=== PATIENT | male | born 1935 | race Asian ===

== ENCOUNTER 2023-11-28 09:53 | Observation (INO) | payer OTHER, MEDICARE ==
[2023-11-28 10:37] LABS: URINE APPEARANCE CLEAR; URINE BILIRUBIN NEGATIVE (NEGATIVE); URINE COLOR YELLOW; URINE GLUCOSE (UA) 3+ (NEGATIVE); URINE KETONE NEGATIVE (NEGATIVE); URINE LEUK ESTERASE NEGATIVE (NEGATIVE); URINE NITRITE NEGATIVE (NEGATIVE); URINE PROTEIN NEGATIVE (NEGATIVE); URINE UROBILINOGEN 0.2 mg/dL (0.2-1.0)
[2023-11-28 11:07] LABS: EOS % 7.4 % (0-4.5); HEMATOCRIT 42.8 % (35.4-49); HEMOGLOBIN 14.6 GM/dL (11.7-16.9); LYMPH % 18.9 % (8-40); MCHC 34.1 g/dl (32.0-35.9); MEAN CELL VOLUME 90.8 fl (80-96); MEAN PLT VOLUME 9.5 fl (7.5-11.1); NEUT % 63.7 % (42.8-82.8); PLATELET COUNT 169 10^3/uL (134-434); RBC 4.71 M/mm3 (4.00-5.60); RDW 14.2 % (11.9-15.9); WHITE BLOOD COUNT 7.4 K/mm3 (4.0-10.0)
[2023-11-28 11:19] LABS: ACTIVATED PTT 32.7 SECONDS (25.2-36.5); PROTHROMBIN TIME (PATIENT) 11.3 SEC (9.7-13.0)
[2023-11-28 11:32] LABS: POTASSIUM 5.6 mmol/L (3.5-5.1)
[2023-11-28 11:34] LABS: CALCIUM 9.7 mg/dL (8.5-10.1)
[2023-11-28 11:35] LABS: ALBUMIN 3.8 g/dl (3.4-5.0); BLOOD UREA NITROGEN 33.2 mg/dL (7-18)
[2023-11-28 11:38] LABS: CREATININE 1.9 mg/dL (0.55-1.3); PHOSPHOROUS 4.1 mg/dL (2.5-4.9)
[2023-11-28 11:40] LABS: TOT PROT 7.7 g/dl (6.4-8.2)
[2023-11-28] MEDS: LACTATED RINGERS SOLUTION 1000 ML INFUS.BAG IV ONE (13:16)
[2023-11-28] MEDS: SODIUM CHLORIDE 0.45% 1,000 ML IV SCH (15:22)
[2023-11-28 15:57] LABS: POTASSIUM 4.2 mmol/L (3.5-5.1)
[2023-11-28 15:59] LABS: CALCIUM 9.3 mg/dL (8.5-10.1)
[2023-11-28 16:00] LABS: ALBUMIN 3.5 g/dl (3.4-5.0); BLOOD UREA NITROGEN 33.7 mg/dL (7-18); MAGNESIUM 1.9 mg/dL (1.8-2.4)
[2023-11-28 16:04] LABS: BILIRUBIN,TOTAL 0.7 mg/dL (0.2-1); TOT PROT 7.1 g/dl (6.4-8.2)
[2023-11-28 16:07] LABS: CREATININE 1.9 mg/dL (0.55-1.3); PHOSPHOROUS 3.5 mg/dL (2.5-4.9)
[2023-11-28] MEDS: INSULIN ASPART SLIDING SCALE (NOVOLOG) 1 VIAL SQ SCH (17:54)
[2023-11-28] MEDS ORDERED: INSULIN ASPART SLIDING SCALE (NOVOLOG) 1 VIAL SQ ONE (17:56)
[2023-11-28 21:27] VITALS: BMI 26.4
[2023-11-28] MEDS ORDERED: PATIENT'S OWN MEDICATION (NON-FORMULARY) (Netarsudil Mesylate [Rhopressa] 2.5 ML Drops) OU SCH (22:00)
[2023-11-28] MEDS ORDERED: PATIENT'S OWN MEDICATION (NON-FORMULARY) (Dorzolamide Hcl/Timolol Maleat [Dorzolamide-Timo OU SCH (22:00)
[2023-11-28] MEDS: amLODIPine BESYLATE 2.5 MG TABLET (FP) PO SCH (22:48)
[2023-11-28] MEDS: DORZOLAMIDE 2% HCL OPHTHALMIC SOLUTION 10 ML BOTTLE OU SCH (22:49)
[2023-11-28] MEDS: ATORVASTATIN CA 20 MG TABLET (FP) PO SCH (22:49)
[2023-11-28] MEDS: TAMSULOSIN HCL 0.4 MG CAP PO ONE (22:49)
[2023-11-28] MEDS: BRIMONIDINE TARTRATE 0.15% OPHTHALMIC 5 ML BOTTLE OD SCH (22:49)
[2023-11-28] MEDS: TIMOLOL 0.5% OPHTHALMIC SOL 5 ML BOTTLE OU SCH (22:50)
[2023-11-28] MEDS: TAMSULOSIN HCL 0.4 MG CAP PO SCH (22:51)
[2023-11-29] MEDS ORDERED: TAMSULOSIN HCL 0.4 MG CAP PO SCH ×2 (08:30→22:00)
[2023-11-29 09:14] LABS: HEMATOCRIT 39.6 % (35.4-49); HEMOGLOBIN 13.2 GM/dL (11.7-16.9); MCH 30.7 pg (25.7-33.7); MCHC 33.3 g/dl (32.0-35.9); MEAN CELL VOLUME 92.2 fl (80-96); MEAN PLT VOLUME 9.1 fl (7.5-11.1); PLATELET COUNT 160 10^3/uL (134-434); RBC 4.29 M/mm3 (4.00-5.60); RDW 13.9 % (11.9-15.9); WHITE BLOOD COUNT 8.2 K/mm3 (4.0-10.0)
[2023-11-29 09:42] LABS: POTASSIUM 3.9 mmol/L (3.5-5.1)
[2023-11-29 09:47] LABS: ALBUMIN 3.2 g/dl (3.4-5.0); BLOOD UREA NITROGEN 29.6 mg/dL (7-18)
[2023-11-29 09:51] LABS: CALCIUM 8.8 mg/dL (8.5-10.1)
[2023-11-29 09:54] LABS: CREATININE 1.6 mg/dL (0.55-1.3)
[2023-11-29 09:55] LABS: TOT PROT 6.5 g/dl (6.4-8.2)
[2023-11-29 09:56] LABS: MAGNESIUM 1.8 mg/dL (1.8-2.4)
[2023-11-29 09:57] LABS: PHOSPHOROUS 3.5 mg/dL (2.5-4.9)
[2023-11-29] MEDS ORDERED: FUROSEMIDE 20 MG TABLET (FP) PO SCH (10:00)
[2023-11-29] MEDS: LOSARTAN 50MG/HCTZ 12.5MG 1 TAB PO SCH (18:34)
[2023-11-29] MEDS: METOPROLOL TARTRATE 50 MG TABLET (FP) PO SCH (22:25)
[2023-11-30 09:09] LABS: POTASSIUM 3.8 mmol/L (3.5-5.1)
[2023-11-30 09:11] LABS: CALCIUM 8.4 mg/dL (8.5-10.1)
[2023-11-30 09:14] LABS: BLOOD UREA NITROGEN 26.8 mg/dL (7-18)
[2023-11-30 09:15] LABS: CREATININE 1.6 mg/dL (0.55-1.3)
[2023-11-30 13:07] VITALS: BP 126/69; PULSE 62; RESP 17; TEMP 98.1
[2023-11-30] MEDS: TAMSULOSIN HCL 0.4 MG CAP PO ONE (13:39)
== END 2023-11-30 17:02 | disposition home or self-care (01) ==
LOC: JER 09:53 → JERBED 13:14 → J7W 18:57
PROVIDERS: ADMIT Internal Medicine; ATTEND Internal Medicine
PROC: 0T9B70Z Drainage of Bladder with Drainage Device, Via Natural or Artificial Opening (ICD-10-PCS; principal; 2023-11-28)
PROC: 3E0337Z Introduction of Electrolytic and Water Balance Substance into Peripheral Vein, Percutaneous Approach (ICD-10-PCS; 2023-11-28)
DX: R33.9 Retention of urine, unspecified (principal); N13.30 Unspecified hydronephrosis; E11.22 Type 2 diabetes mellitus with diabetic chronic kidney disease; I12.9 Hypertensive chronic kidney disease with stage 1 through stage 4 chronic kidney disease, or unspecified chronic kidney disease; N18.9 Chronic kidney disease, unspecified; Z90.79 Acquired absence of other genital organ(s); N40.0 Benign prostatic hyperplasia without lower urinary tract symptoms; I99.8 Other disorder of circulatory system; Z88.8 Allergy status to other drugs, medicaments and biological substances
CPT/HCPCS: 36415; 51702; 71045-TC-FY; 80048; 80053; 81003; 82962; 83735; 84100; 84484; 85025; 85027; 85610; 85730; 86850; 86900; 86901; 87086; 87186; 93005; 93010; 93971-TC; 96360; 99285-25; G0378

== ENCOUNTER 2024-03-08 04:41 | Day surgery (SDC) | payer OTHER, MEDICARE ==
[2024-03-05 10:15] VITALS: BMI 25.2
[2024-03-08] MEDS ORDERED: PROPOFOL 20 ML ONE (07:20)
[2024-03-08] MEDS ORDERED: MIDAZOLAM HCL 2 MG/2 ML SINGLE DOSE VIAL ONE (07:20)
[2024-03-08] MEDS ORDERED: LIDOCAINE HCL/PF 2% SDV 5ML VIAL ONE (07:20)
[2024-03-08] MEDS ORDERED: KETOROLAC TROMETHAMINE 30 MG/1 ML VIAL ONE (08:02)
[2024-03-08] MEDS ORDERED: ONDANSETRON 4 MG/2 ML VIAL ONE (08:02)
[2024-03-08] MEDS ORDERED: ceFAZolin SODIUM 1 GM VIAL ONE (08:02)
[2024-03-08] MEDS ORDERED: DEXAMETHASONE SOD PHOSPHATE 4 MG/1 ML VIAL ONE (08:02)
[2024-03-08] MEDS: GENTAMICIN SO4 80 MG/2 ML VIAL IVPB ONE (08:03)
[2024-03-08] MEDS: ceFAZolin SODIUM 1 GM VIAL IVPB ONE (08:03)
[2024-03-08] MEDS ORDERED: GENTAMICIN SO4 80 MG/2 ML VIAL ONE (08:04)
[2024-03-08] MEDS ORDERED: oxyCODONE HCL 5 MG TABLET PO PRN ×2 (08:17)
[2024-03-08] MEDS ORDERED: ONDANSETRON 4 MG/2 ML VIAL IVPUSH PRN (08:17)
[2024-03-08] MEDS ORDERED: PROMETHAZINE HCL 25 MG/1 ML VIAL IVPB PRN (08:17)
[2024-03-08] MEDS ORDERED: ACETAMINOPHEN INJECTION 100 ML ONE (09:13)
[2024-03-08] MEDS: ACETAMINOPHEN 1000 MG/100 ML BAG IVPB ONE (09:15)
[2024-03-08 09:40] VITALS: RESP 16
[2024-03-08] MEDS: LACTATED RINGERS SOLUTION 1,000 ML IV SCH (09:50)
[2024-03-08 10:33] VITALS: TEMP 97.6
[2024-03-08 12:08] VITALS: BP 138/70; PULSE 54
== END 2024-03-08 12:41 | disposition home or self-care (01) ==
LOC: JASU-SURG 04:41
PROVIDERS: ATTEND Urology
PROC: 0T7D8DZ Dilation of Urethra with Intraluminal Device, Via Natural or Artificial Opening Endoscopic (ICD-10-PCS; 2024-03-08)
PROC: 0T7D8DZ Dilation of Urethra with Intraluminal Device, Via Natural or Artificial Opening Endoscopic (ICD-10-PCS; principal; 2024-03-08 08:00)
DX: N40.1 Benign prostatic hyperplasia with lower urinary tract symptoms (principal); R33.8 Other retention of urine
CPT/HCPCS: 82962; 94760; J0131; L8699

== ENCOUNTER 2024-04-06 04:29 | Day surgery (SDC) | payer OTHER, MEDICARE ==
[2024-04-05 12:38] VITALS: BMI 53.7
[2024-04-06 10:01] LABS: BASO % 0.8 % (0-2.0); EOS % 8.4 % (0-4.5); HEMATOCRIT 40.6 % (35.4-49); HEMOGLOBIN 13.7 GM/dL (11.7-16.9); LYMPH % 22.2 % (8-40); MCH 30.1 pg (25.7-33.7); MCHC 33.7 g/dl (32.0-35.9); MEAN CELL VOLUME 89.6 fl (80-96); MEAN PLT VOLUME 8.5 fl (7.5-11.1); MONO % 8.7 % (3.8-10.2); NEUT % 59.9 % (42.8-82.8); PLATELET COUNT 204 10^3/uL (134-434); PROTHROMBIN TIME (PATIENT) 11.5 SEC (9.7-13.0); RBC 4.54 M/mm3 (4.00-5.60); RDW 14.6 % (11.9-15.9); WHITE BLOOD COUNT 7.4 K/mm3 (4.0-10.0)
[2024-04-06] MEDS ORDERED: MIDAZOLAM HCL 2 MG/2 ML SINGLE DOSE VIAL ONE (12:30)
[2024-04-06] MEDS ORDERED: FENTANYL CITRATE/PF 50 MCG/ML VIAL ONE (12:30)
[2024-04-06] MEDS: SODIUM CHLORIDE 500 ML IV SCH (12:30)
[2024-04-06] MEDS: FENTANYL CITRATE/PF 50 MCG/ML VIAL IVPUSH ONE (12:50)
[2024-04-06] MEDS: MIDAZOLAM HCL 2 MG/2 ML SINGLE DOSE VIAL IVPUSH ONE (12:51)
[2024-04-06 14:08] VITALS: RESP 18
[2024-04-06 14:23] VITALS: BP 148/79; PULSE 64; TEMP 97.1
== END 2024-04-06 15:00 | disposition home or self-care (01) ==
LOC: JRADIR 04:29
PROVIDERS: ATTEND Urology
PROC: 0T9B70Z Drainage of Bladder with Drainage Device, Via Natural or Artificial Opening (ICD-10-PCS; principal; 2024-04-06)
DX: R32 Unspecified urinary incontinence (principal)
CPT/HCPCS: 36415; 51102; 82010; 82962; 85025; 85610